=== PATIENT | male | born 1995 | race Caucasian/White ===

== ENCOUNTER 2019-04-23 09:30 | Day surgery (SDC) | payer MEDICAID ==
[~2019-04-23] VITALS: Ht 170.2 cm; Wt 68.8 kg
[2019-04-23 10:00] VITALS: BP 120/76
[2019-04-23] MEDS ORDERED: DICY10CA88 PO (10:22)
[2019-04-23] MEDS ORDERED: DULO-31 PO (10:22)
[2019-04-23] MEDS ORDERED: [UNRECOGNIZED DRUG - OTHER] INH (10:22)
[2019-04-23 11:50] VITALS: BP 116/60
[2019-04-23 12:05] VITALS: BP 109/57
[2019-04-23 12:06] LABS: GLUCOSE,CSF 54 MG/DL (40-75); TOTAL PROTEIN,CSF 31 MG/DL (15-45)
[2019-04-23 12:15] VITALS: BP 118/58
[2019-04-23 13:05] LABS: APPEARANCE,CSF CLEAR; CSF SUPERNATANT COLOR COLORLESS; CSF VOLUME 13.5 ML
[2019-04-23 13:06] LABS: CSF WBC CT 4 /CU MM (0-5); TUBE# COUNTED 3
[2019-04-23 13:07] LABS: CSF RBC 0 /CU MM (0)
[2019-04-24 08:10] LABS: IMMUNOGLOBULIN G, QN, SERUM 1165 mg/dL (700-1600)
[2019-04-27 11:09] LABS: IMMUNOGLOBULIN G, QN CSF 2.8 mg/dL (0.0-8.6)
[2019-04-28 13:16] LABS: ALPHA-1-GLOBULIN, CSF 4.5 % (1.1-6.6); ALPHA-2-GLOBULIN, CSF 5.3 % (3.0-12.6); GAMMA GLOBULIN, CSF 15.2 % (3.0-13.0); PRE-ALBUMIN, CSF 5.1 % (2.2-7.1); PROTEIN, TOTAL, CSF 23.9 mg/dL (0.0-44.0)
== END 2019-04-23 12:30 | disposition home or self-care (01) ==
LOC: SSTAY O 09:30
DX: G35 Multiple sclerosis (principal)
CPT/HCPCS: 36415; 62328; 77002; 82040; 82042; 82784; 82945; 83873; 83916; 84157; 84166; 86335; 89051